=== PATIENT | male | born 1980 | race Caucasian/White ===

== ENCOUNTER → 2017-10-09 09:11 | Outpatient (CLI) | payer BC, SELFPAY ==
[2017-10-09 11:19] LABS: Anion Gap 8.7 mmol/L (3-11); BUN 16 mg/dL (7-18); CO2 28.3 mmol/L (21.0-32.0); CREATININE 1.09 mg/dL (0.70-1.30); Calcium 8.8 mg/dL (8.5-10.1); Chloride 104 mmol/L (98-107); Cholesterol 252 mg/dL (50-200); Glucose 97 mg/dL (70-100); HDL Cholesterol 36 mg/dL (40-60); LDL CHOLESTEROL 206 mg/dL (<100); Potassium 4.1 mmol/L (3.5-5.1); Sodium 141 mmol/L (136-145); Triglyceride 74 mg/dL (30-150)
== END ==
PROVIDERS: PCP Family Medicine; Visit Provider Family Medicine
DX: Z00.00 Encounter for general adult medical examination without abnormal findings (principal); Z13.220 Encounter for screening for lipoid disorders; Z13.228 Encounter for screening for other metabolic disorders
CPT/HCPCS: 36415; 80048; 80061; 83721

== ENCOUNTER 2018-11-09 01:23 | Outpatient (CLI) | payer BC, SELFPAY ==
[2018-11-09 08:10] LABS: Anion Gap 9.2 mmol/L (3-11); BUN 14 mg/dL (7-18); CO2 28.8 mmol/L (21.0-32.0); Calcium 8.9 mg/dL (8.5-10.1); Calculated LDL 161 mg/dL; Chloride 106 mmol/L (98-107); Cholesterol 221 mg/dL (50-200); Glucose 111 mg/dL (70-100); HDL Cholesterol 41 mg/dL (40-60); Potassium 4.1 mmol/L (3.5-5.1); Sodium 144 mmol/L (136-145); Triglyceride 98 mg/dL (30-150)
== END 2018-11-09 01:43 ==
PROVIDERS: PCP Family Medicine; Visit Provider Family Medicine
DX: E78.5 Hyperlipidemia, unspecified (principal)
CPT/HCPCS: 36415; 80048; 80061

== ENCOUNTER 2019-02-11 06:48 | Day surgery (SDC) | payer BC, SELFPAY ==
[2019-02-11 07:07] VITALS: BP 121/83; PULSE 61; RESP 16; TEMP 37.1; O2SAT 97
[2019-02-11] MEDS: Lactated Ringers 1,000 ML 80 ML IV (07:22)
--- NOTE | 2019-02-11 08:13 | W.PM.DSUDISC ---
Discharge Plan Disposition Patient Disposition: HOME Condition: Good Discharge Details Reason For Visit: Colonoscopy Attending Provider: Yesica Vazquez Primary Care Provider: Eligio Garcia Home Meds and New Rx's Prescriptions: Continued amlodipine 10 mg tablet 10 mg PO DAILY Qty: 90 RF: 4 rosuvastatin 10 mg tablet 10 mg PO DAILY Qty: 90 RF: 4 aspirin 325 MG tablet 325 mg PO DAILY RF: 0 terbinafine HCl 1 % cream 1 applic TP BID Qty: 30 RF: 2 naproxen 250 MG tablet 500 mg PO PRN PRNRF: 0 Discontinued polyethylene glycol 3350 17 gram/dose powder 238 g PO ONCE Qty: 238 RF: 0 bisacodyl [Dulcolax (bisacodyl)] 5 mg tablet,delayed release (DR/EC) 5 mg PO ONCE Qty: 4 RF: 0 Discharge Instructions Additional Instructions: Findings: Your colonoscopy showed mild diverticulosis. Make sure to take in 30 grams of fiber in your diet every day. Follow up: Plan for a colonoscopy in 5 years. Please call if you develop: fevers >101.5 Nausea or Vomiting Abdominal pain that is not transient DAY SURGERY UNIT POST COLONOSCOPY INSTRUCTIONS 1. Because there will be medication in your system for the next 24 hours, you may feel a little sleepy. Your coordination will be affected. Therefore: a. Do not drive or operate dangerous equipment for 24 hours. b. Do not drink alcohol beverages for 24 hours (not even beer). c. Plan to go home and rest for the day. 2. Generally there are no restrictions on your activity after a day or so has gone by, but you may feel a bit fatigued for a few days. 3 After you arrive home you may have a light meal and return to a normal diet as you can tolerate it without feeling sick to your stomach. 4. After surgery, you may feel pain or discomfort. This should be only transient, but if it persists please contact your doctor. 5. If there are any questions regarding the findings of your procedure, please feel free to contact your doctor. 6. If you are unable to contact your doctor with a problem, contact the hospital at [phone]. 7. Continue all your regular medications unless directed otherwise. I understand the above instructions and have no questions. Signature of Patient or Responsible Adult Escort Date/Time Name of Responsible Adult Escort Signature of Nurse Date/Time Activity:: Activity as Tolerated Diet:: As Tolerated Discharge Orders Discharge Orders: Discharge Order (Routine); Ordered 02/11/19 Ordered By: Yesica Vazquez DS: Diagnosis Discharge Diagnosis (1) Family history of colon cancer: Status: Acute (2) Diverticulosis: Status: Acute
[2019-02-11 09:32] VITALS: BP 118/75; PULSE 64; RESP 16; TEMP 36.6; O2SAT 99
--- NOTE | 2019-02-11 10:27 | COLE_ITS ---
DATE OF PROCEDURE: February 11, 2019 PREOPERATIVE DIAGNOSIS: Family history of colon cancer. POSTOPERATIVE DIAGNOSIS: Mild diverticulosis. PROCEDURE: Colonoscopy. SURGEON: Yesica Vazquez M.D. ANESTHESIA: General. INDICATIONS: This is a 38-year-old who presents for his first colon evaluation. He is asymptomatic. His brother was diagnosed with colon cancer at age 46. PROCEDURE: He was placed in the left Lama position. Propofol was titrated to sedation. Digital rec dorcas examination revealed no abnormalities. The scope was advanced to the cecum without difficulty. The ileocecal valve and appendiceal orifice were clearly identified. His prep was excellent. The sc ope was slowly withdrawn with no abnormalities seen within the ascending, transverse, descending, sig moid colon or rectum, including on retroflex view. He tolerated the procedure well and was stable to recovery. He will need a follow-up screening again in five years due to family history. cc: Eligio Garcia M.D.
== END 2019-02-11 09:59 | disposition home or self-care (01) ==
PROVIDERS: PCP Family Medicine; Visit Provider Surgery
PROC: 0DJD8ZZ Inspection of Lower Intestinal Tract, Via Natural or Artificial Opening Endoscopic (ICD-10-PCS; CPT 45378; principal; 2019-02-11 08:15)
DX: K57.30 Diverticulosis of large intestine without perforation or abscess without bleeding; Z12.11 Encounter for screening for malignant neoplasm of colon; Z80.0 Family history of malignant neoplasm of digestive organs
CPT/HCPCS: 45378; J2250; J3010

== ENCOUNTER 2019-12-06 01:24 | Outpatient (CLI) | payer BC, SELFPAY ==
[2019-12-06 09:48] LABS: Anion Gap 7.4 mmol/L (3-11); BUN 16 mg/dL (7-18); CO2 27.6 mmol/L (21.0-32.0); CREATININE 1.04 mg/dL (0.70-1.30); Calcium 9.2 mg/dL (8.5-10.1); Chloride 104 mmol/L (98-107); Glucose 103 mg/dL (74-106); Potassium 4.4 mmol/L (3.5-5.1); Sodium 139 mmol/L (136-145)
== END 2019-12-06 01:44 ==
PROVIDERS: Family Medicine; PCP Nurse Practitioner; Visit Provider Nurse Practitioner
DX: I10 Essential (primary) hypertension (principal)
CPT/HCPCS: 36415; 80048

== ENCOUNTER 2022-09-01 02:50 | Outpatient (CLI) | payer BC, SELFPAY ==
[2022-09-01 07:24] LABS: HCT 49.5 % (40.0-50.0); HGB 16.5 g/dL (13.5-17.5); MCH 29.5 pg (27.0-33.0); MCHC 33.3 % (32.0-36.0); MCV 88 fL (80-95); MPV 9.3 fL (8.0-11.0); Platelet Count 312 10^3/uL (130-400); RDW 13.2 % (11.8-14.1); RDW-SD 43.2 fL; WBC 6.79 10^3/uL (4.4-10.8)
[2022-09-01 08:08] LABS: Anion Gap 9.1 mmol/L (3-11); BUN 20 mg/dL (7-18); CO2 27.9 mmol/L (21.0-32.0); CREATININE 1.1 mg/dL (0.70-1.30); Calculated LDL 220 mg/dL (<100); Chloride 104 mmol/L (98-107); Cholesterol 270 mg/dL (<200); Estimated GFR 86.49 (mL/min/1.73m2); Glucose 106 mg/dL (74-106); HDL Cholesterol 36 mg/dL (40-60); Potassium 4.1 mmol/L (3.5-5.1); Sodium 141 mmol/L (136-145); TSH (W/Ref FT4) 4.73 uIU/mL (0.36-3.74); Triglyceride 72 mg/dL (<150)
[2022-09-01 08:32] LABS: FREE T4 0.87 ng/dL (0.76-1.46)
== END 2022-09-01 02:51 | disposition home or self-care (01) ==
LOC: LBO 02:50
PROVIDERS: PCP Nurse Practitioner Family; Visit Provider Nurse Practitioner Family
DX: E78.5 Hyperlipidemia, unspecified (principal); F32.9 Major depressive disorder, single episode, unspecified; I10 Essential (primary) hypertension; Z00.00 Encounter for general adult medical examination without abnormal findings
CPT/HCPCS: 36415; 80048; 80061; 85027; 84439; 84443

== ENCOUNTER 2023-05-22 02:20 | Outpatient (CLI) | payer BC, SELFPAY ==
[2023-05-22 15:46] LABS: Calculated LDL 139 mg/dL (<100); Cholesterol 195 mg/dL (<200); HDL Cholesterol 44 mg/dL (40-60); Triglyceride 60 mg/dL (<150)
== END 2023-05-22 02:21 | disposition home or self-care (01) ==
LOC: LBO 02:21
PROVIDERS: PCP Nurse Practitioner Family; Visit Provider Nurse Practitioner Family
DX: E78.5 Hyperlipidemia, unspecified (principal); I10 Essential (primary) hypertension; F32.9 Major depressive disorder, single episode, unspecified
CPT/HCPCS: 36415; 80061

== ENCOUNTER 2024-03-11 11:09 | Day surgery (SDC) | payer BC, SELFPAY ==
--- NOTE | 2024-03-10 20:55 | COLE_ITS ---
Date of service: 03/11/24 Time of Service: 12:48 Colonoscopy Report Date of procedure: 03/11/24 Pre-op diagnosis general: diverticulosis/CRC brother 46 Post-op diagnosis procedure note: same Surgeon: Tara Hennessy Anesthesia Type: General:No Airway Estimated blood loss (mL): 0 Pathology: none sent Complications: None Disposition: same day Prep: Miralax/Dulcolax Procedure Description: After informed consent was obtained, explaining risks of the procedure, including but not limits to: bleeding, infections, complications of anesthesia, perforations (which may require antibiotics and /or surgery and stay in the hospital), and abdominal pain/cramping. The patient was taken to the procedure room and placed in a left decubitous position. Monitors were applied and a time out was done. The patients name, date of , procedure, allergies to medications and metal in their body was reviewed. The patient was then sedated. Once sedated and comfortable a rectal exam was done. External exam was normal. Internal exam revealed a normal sphincter tone and no palpable masses. The prostate - no masses palpateed. The previously lubricated Olympus scope was then introduced (see RN notes for scope number) and retrofelexed. Grade I internal hemorrhoids were identified. The scope was then advanced to the cecum without difficulty. The TI and appendiceal orifice were identified. The scope was then slowly retracted over 12 minutes back into the rectum. Polyps: none. Diverticula: pt had few small mouthed diverticula in the sigmoid colon. There were no signs of active bleeding or infection. The mucosa is pink and healthy w/ a normal vascular pattern. The scope was removed, and the patient was woken up and taken back to Same day surgery in stable condition. The patient tolerated the procedure well and there were no immediate complications. Follow up: The patient should follow up in 5 years, unless they develop changes in bowel habits or other new gastrointestinal complaints. [place] Bowel Prep [place] Bowel Prep Right Colon: 2 Left Colon: 3 Transverse Colon: 3 Total Score: 8
--- NOTE | 2024-03-10 20:57 | PDOC.DSDIS_ITS ---
Date of service: 03/11/24 Discharge Plan Disposition Patient Disposition: Home Condition: Good Discharge Details Reason For Visit: colon cancer screening Attending Provider: Tara Hennessy Primary Care Provider: Lyla Chawla Home Meds and New Rx's Prescriptions: Continued lamotrigine 25 mg tablet 150 mg PO DAILY Patient Comments: TAKE ONE TABLET BY MOUTH DAILY FOR 7 DAYS THEN 2 TABLETS ONCE DAILY TO MAINTAIN triamcinolone acetonide 0.1 % ointment 1 applic topical BID PRN (Reason: dermatitis) Qty: 30 0RF Rx Instructions: twice daily for one week, then daily for 1 week and then as needed. aspirin 325 mg tablet 325 mg PO DAILY PRN amlodipine 5 mg tablet 5 mg PO DAILY Qty: 30 0RF omeprazole 20 mg capsule,delayed release(DR/EC) 20 mg PO DAILY Qty: 90 3RF rosuvastatin 10 mg tablet 10 mg PO DAILY Qty: 90 4RF naproxen 250 MG tablet 500 mg PO PRN PRN Discontinued bisacodyl [Dulcolax (bisacodyl)] 5 mg tablet,delayed release (DR/EC) 5 mg PO ONCE Qty: 4 0RF Rx Instructions: Take per colonoscopy instructions provided by ordering providers office polyethylene glycol 3350 17 gram/dose powder 17 g PO ONCE Qty: 238 0RF Rx Instructions: Take per colonoscopy instructions provided by ordering providers office Discharge Instructions Additional Instructions: DSU Colonoscopy Post- Op Instructions Instructions for Everyone who is given Anesthesia: For your safety, please do the following for the next twenty-four (24) hours: *Do Not operate a motor vehicle (car, truck, motorcycle, etc.) *Do Not drink alcoholic beverages or use any recreational drugs for the first 24 hours or while taking pain medications. The medications in your body may have a reaction that can be dangerous. *Do Not make any important decisions or sign any important papers. Findings:Minor diverticula. Make sure you are moving your bowels on a regular basis and not straining. If you find you are having problems with constipation/straining, then is recommended you start a daily fiber supplement such as Metamucil. Follow up: Repeat colonoscopy in 5yrs time 1. No lifting over 20 pounds or strenuous activity for the first 24 hours after your procedure. After 24 hours there are no restrictions on your activity but you may feel fatigued for a few days. 2. After you arrive home you may have a light meal and return to your normal diet as you can tolerate it without feeling sick to your stomach. 3. You may have a bloated, gaseous feeling in your belly (abdomen) after a colonoscopy. Passing gas and belching will help. Walking or lying down on your left side with your knees flexed may relieve the discomfort. Call the office at [phone] (Office) or [phone] (Hospital) right away if you notice any of the following: a.Vomiting of blood or ?coffee ground stools?. b.Rectal bleeding 1Tbsp, blood clots or continuous bleeding. c.Severe belly (abdominal) pain. d.A hard distended belly (abdomen) and an inability to pass gas. 4. Please don?t expect to have a normal BM (bowel movement) for 2-3 days after your procedure. 5. If there are questions regarding the findings of your procedure, please contact your doctor 6. If you are unable to contact your doctor with a problem, contact the hospital at [phone]. 7. Continue all your regular medications unless directed otherwise. I understand the above instructions and have no questions. Signature of Patient or Adult Escort Name of Responsible Adult Escort Signature of Nurse Date/Time Activity:: see above Diet:: see above Discharge Orders Discharge Orders: Discharge Order (Routine); Ordered 03/11/24 Ordered By: Tara Hennessy DS: Diagnosis Discharge Diagnosis (1) Family history of colon cancer: Status: Acute Asessment and Plan: The patient is seen and examined after their colonoscopy.? The patient has been able to pass gas.? They are not having abdominal pain.? They have been able to tolerate liquids and a snack.? They do not have any nausea or vomiting.? They are not having any chest pain or shortness of breath.??? They are not having any rectal bleeding. Their vital signs have been stable-see nursing notes. We discussed findings during their colonoscopy, and any biopsies that were done/polyps that were removed. The patient will be sent a letter with any biopsy results, and when to repeat the colonoscopy.-see discharge instructions. Patient was given explicit instructions to follow-up regarding colonoscopy-refer to discharge instructions.? We reviewed resumption of medications. Patient verbalized understanding and discharged in stable and satisfactory condition- See nursing notes. (2) Diverticulosis: (3) HTN (hypertension): Status: Chronic (4) Hyperlipidemia: Status: Acute (5) Cerebral infarction due to iatrogenic cerebrovascular accident (CVA): (6) Transient global amnesia:
[2024-03-11 11:29] VITALS: BP 122/77; PULSE 59; RESP 16; TEMP 36.7; O2SAT 98
[2024-03-11] MEDS: Lactated Ringers 1,000 ML 80 ML IV (11:54)
[2024-03-11 12:28] VITALS: BP 130/57; PULSE 68; RESP 20; TEMP 36.5; O2SAT 95
[2024-03-11 12:52] VITALS: BP 105/68; PULSE 67; RESP 20; TEMP 36.5; O2SAT 99
--- NOTE | 2024-03-15 07:36 | W.ANESPRE ---
General Info Date of Service Date Performed: 03/11/24 Height: 6 ft 2 in Weight: 106.5 kg Body Mass Index (BMI): 30.1 Surgical Procedure: Operation Date: 03/11/24 11:20 Proposed Procedure Side Surgeon p Colonoscopy Tara Hennessy, DO Actual Procedure Side Surgeon p Colonoscopy Not Applicable Tara Hennessy, DO Pre-Op Diagnosis Post-Op Diagnosis FAMILY HISTORY OF COLON CANCER DIVERTICULA Meds Allergies and Home Medications Allergies Allergy/AdvReac Type Severity Reaction Status Date / Time No Known Allergies Allergy Verified 03/11/24 11:25 Home Medication ?Medication ?Instructions ?Recorded naproxen 250 mg tablet 500 mg PO PRN PRN 05/11/12 aspirin 325 mg tablet 325 mg PO DAILY PRN 10/25/19 triamcinolone acetonide 0.1 % 1 applic topical BID PRN 09/16/22 topical ointment dermatitis #30 grams amlodipine 5 mg tablet 5 mg PO DAILY #30 tabs 02/02/24 omeprazole 20 mg capsule,delayed 20 mg PO DAILY #90 caps 02/03/24 release rosuvastatin 10 mg tablet 10 mg PO DAILY #90 tabs 02/03/24 lamotrigine 25 mg tablet 150 mg PO DAILY 02/25/24 PFSH Active Problems Active Problems: Problem Status Onset Code Depression Chronic F32.9 Hyperlipidemia Acute E78.5 HTN (hypertension) Chronic I10 Family history of colon cancer Acute Z80.0 Medical History Medical History CTS (carpal tunnel syndrome) Diverticulosis Multiple lipomas Cerebral infarction due to iatrogenic cerebrovascular accident (CVA) (06/29/13) unsure of this- Seen by neuro at [facility] [place]- episode transient global amnesia with headache vs CVA (2013) Transient global amnesia (06/29/13) 2013 with no recurrance Multifocal infarction, cerebellar hemisp a. Multifocal infarction in the superior aspect of the right cerebellar hemisphere. Eye abnormalities a. Visual field abnormalities of left eye. Surgical History Surgical History (Updated 03/14/24 @ 07:41 by Marcelle Stapleton) History of colonoscopy (~02/2024) No polups 5 years Fracture, Open Treatment (~05/2007) RIGHT radius Tobacco Smoking/Tobacco Use Status: Never Passive smoking exposure: Yes Second hand exposure: Yes Alcohol Alcohol Intake: current Alcohol intake frequency: holidays/special occasions only Alcohol type: beer Substance Use Substance use: Rarely Substance use type: marijuana Vital Signs and Lab Results Vital Signs Most Recent Vital Signs in EMR: Most Recent Vital Signs Temp Pulse Resp BP Pulse Ox 36.5 C 67 20 105/68 99 03/11/24 12:52 03/11/24 12:52 03/11/24 12:52 03/11/24 12:52 03/11/24 12:52 Lab Results Blood Type / Crossmatch: No Data to Display Complete Blood Count: No Data to Display Complete Metabolic Panel: No Data to Display Liver Function Panel: No Data to Display Coagulation Panel: No Data to Display Cardiac Panel: No Data to Display Arterial Blood Gas: No Data to Display Venous Blood Gas: No Data to Display Pancreas Panel: No Data to Display Thyroid Panel: No Data to Display Infectious Disease: No Data to Display Blood Cultures: No Data to Display Toxicology Panel: No Data to Display Anesthesia Assessment and Plan Anesthesia History Personal History: No History of Anesthesia Complications Family History: No Family History of Anesthesia Complications Exercise Tolerance Exercise Tolerance: Metabolic Equivalents>4 Pertinent Negatives Pertinent Negatives: No Symptoms of GERD, No Major Cardiovascular Symptoms or Complaints, No Major Pulmonary Symptoms or Complaints and No History of CVA/TIA Cardiac & Pulmonary Exam Cardiac Exam: Normal S1/S2 Heart Sounds Pulmonary Exam: Clear Bilateral Breath Sounds Implantable Cardiac Device Does patient have a Pacemaker or an ICD?: No Airway Exam Known Difficult Airway: No Mallampati Class: 2 Mouth Opening: Normal (> 3cm) Thyromental Distance: Greater than 3 cm Neck Range of Motion: Full ROM Neck Circumference: Normal Teeth Condition: Normal Dentition ASA Classification ASA Score: ASA 2 Emergency Case?: No NPO Status NPO Status: NPO Clears >2 hours, Solids >8 hours Anesthesia Plan Resuscitation Status: Full Code Anesthesia Technique: General Anesthesia Airway Planned: Natural Airway Monitors Used: Standard Monitors Preoperative Comments:: Late documentation on CJ. Seen day of visit and appropriate.
[2024-03-15 07:38] VITALS: BMI 30.1
--- NOTE | 2024-03-15 07:38 | W.ANESPOSTOP ---
Postoperative Evaluation Date, Time and Location Date Performed: 03/11/24 Time Performed: 12:30 Patient Location: Day Surgery Unit Vital Signs Most Recent Imported Vital Signs: Most Recent Vital Signs Temp Pulse Resp BP Pulse Ox 36.5 C 67 20 105/68 99 03/11/24 12:52 03/11/24 12:52 03/11/24 12:52 03/11/24 12:52 03/11/24 12:52 Pain Score Most Recent Pain Score: Most Recent Pain Score Pain Level 0 03/11/24 11:29 Assessment Mental Status: Awake (Alert & Oriented to Patient Baseline) Airway and Respiratory Function: Patent airway with normal (patient baseline) respiratory exam Cardiovascular Function: Hemodynamically Stable Hydration Status: Adequately Hydrated Nausea & Vomiting: No Nausea or Vomiting Pain: Pt. Denies Any Pain Peripheral Nerve Block: Patient did not receive a nerve block Postoperative Comments:: Completed late documentation on CJ. Seen DOS 03/11/2024, all questions answered.
== END 2024-03-11 13:11 | disposition home or self-care (01) ==
LOC: SUR 11:09
PROVIDERS: PCP Nurse Practitioner Family; Visit Provider Surgery
PROC: 0DJD8ZZ Inspection of Lower Intestinal Tract, Via Natural or Artificial Opening Endoscopic (ICD-10-PCS; CPT 45378; principal; 2024-03-11 11:15)
DX: Z80.0 Family history of malignant neoplasm of digestive organs (principal); I10 Essential (primary) hypertension; K57.30 Diverticulosis of large intestine without perforation or abscess without bleeding; Z12.11 Encounter for screening for malignant neoplasm of colon
CPT/HCPCS: 45378; J2704